=== PATIENT | female | born 1995 | race Caucasian/White ===

== ENCOUNTER 2021-09-19 11:35 | Emergency (ER) | payer OTHER ==
[2021-09-19] MEDS ORDERED: HYDROCODON-ACE1 EAC4 PO (15:45)
== END 2021-09-19 15:51 | disposition home or self-care (01) ==
LOC: ER1 11:35
DX: M54.6 Pain in thoracic spine (principal); X50.0XXA Overexertion from strenuous movement or load, initial encounter
CPT/HCPCS: 72128; 99283

== ENCOUNTER 2022-04-07 10:02 | Inpatient (IN) | payer OTHER ==
[~2022-04-07] VITALS: Ht 170.2 cm; Wt 85.7 kg
[~2022-04-07 10:02] MED LIST: HYDROCODON-ACE1 EAC4 PO
[2022-04-07 10:47] LABS: HEMOGLOBIN 11.8 gm/dl (12.3-15.3); RED BLOOD COUNT 4.18 M/UL (4.00-5.10); WHITE BLOOD COUNT 13.1 K/UL (4.5-11.0)
[2022-04-07 11:13] LABS: BUN/CREATININE RATIO 13 (0-10)
[2022-04-07] MEDS ORDERED: ESCITALOPRAM OX10 MG PO (14:21)
[2022-04-08 06:37] LABS: HEMOGLOBIN 10.6 gm/dl (12.3-15.3); RED BLOOD COUNT 3.78 M/UL (4.00-5.10)
[2022-04-08 06:40] LABS: WHITE BLOOD COUNT 8.8 K/UL (4.5-11.0)
[2022-04-08 07:02] LABS: BUN/CREATININE RATIO 9 (0-10)
[2022-04-09 04:34] LABS: HEMOGLOBIN 10.5 gm/dl (12.3-15.3); RED BLOOD COUNT 3.79 M/UL (4.00-5.10)
[2022-04-09 04:44] LABS: WHITE BLOOD COUNT 5.7 K/UL (4.5-11.0)
[2022-04-09 05:28] LABS: BUN/CREATININE RATIO 8 (0-10)
[2022-04-09] MEDS ORDERED: LEVOFLOXACIN750 MG PO (11:02)
== END 2022-04-09 12:00 | disposition home or self-care (01) | DRG 872 ==
LOC: ER1 10:02 → M/S 13:43 → CDU 13:43 → M/S 16:21
PROVIDERS: Internal Medicine; Physician Assistant Medical; ADMIT Internal Medicine
DX: A41.51 Sepsis due to Escherichia coli [E. coli] (principal); N10 Acute pyelonephritis; E87.6 Hypokalemia; D64.9 Anemia, unspecified; Z83.3 Family history of diabetes mellitus; Z82.49 Family history of ischemic heart disease and other diseases of the circulatory system; Z86.59 Personal history of other mental and behavioral disorders; Z79.899 Other long term (current) drug therapy
CPT/HCPCS: 36415; 80053; 81001; 83605; 83735; 84703; 85025; 85027; 87040; 87077; 87086; 87186; 96361; 96374; 96375; 99285; J0696; J2405